=== PATIENT | male | born 1945 | race Caucasian/White ===

== ENCOUNTER → 2018-10-29 | Outpatient (CLI) | payer MEDICARE, BC ==
--- NOTE | 2018-10-29 14:26 | Diagnostic Imaging Report ---
INDICATION: COUGH. COMPARISON: None. FINDINGS: Frontal and lateral views of the chest demonstrate normal heart size and pulmonary vascularity. The lungs show minimal left basilar atelectasis, but are otherwise clear. There are no signs of infiltrate, pleural effusions or pneumothoraces. The visualized osseous structures show no acute abnormalities. Left-sided AICD is noted. IMPRESSION: 1. No acute process. No signs of infiltrates, effusions or pneumothoraces. Dictated by: Dictated on workstation # [id number]
== END ==
LOC: RAD FS 14:12
PROVIDERS: ATTEND Family Medicine
DX: R05 Cough (principal); Z95.810 Presence of automatic (implantable) cardiac defibrillator
CPT/HCPCS: 71046

== ENCOUNTER 2019-03-20 08:02 | Emergency (ER) | payer MEDICARE, BC ==
[~2019-03-20] VITALS: Ht 175.3 cm; Wt 99.8 kg
[2019-03-20] MEDS ORDERED: fentaNYL INJECTION 100 MCG/2 ML AMP IVP PRN (08:30)
[2019-03-20] MEDS ORDERED: meTOprolol 5 MG/5 ML (LOPRESSOR) VIAL IV ONE (08:30)
[2019-03-20] MEDS ORDERED: ONDANSETRON 4 MG/2 ML (SDV) Z0FRAN IVP ONE (08:30)
--- NOTE | 2019-03-20 08:35 | Diagnostic Imaging Report ---
INDICATION: Chest pain COMPARISON: 10/29/2018 FINDINGS: Single frontal view of the chest demonstrates stable heart size and pulmonary vascularity. The lungs are well aerated and clear. No large pleural effusion or pneumothorax is seen. The visualized osseous structures show no acute abnormalities. Left-sided AICD is noted. IMPRESSION: 1. No acute cardiopulmonary process. Dictated by: Dictated on workstation # [id number]
--- NOTE | 2019-03-20 08:44 | ED Chest Pain ---
General Chief Complaint: Chest Pain Stated Complaint: CHEST PAIN Source: patient, family Exam Limitations: no limitations History of Present Illness Date Seen by Provider: Mar 20, 2019 Time Seen by Provider: 08:15 Initial Comments Patient is a 73-year-old male with history of cardiac arrhythmia, CAD and COPD who presents with substernal chest pain radiating to the back of his neck. Patient reports some chest discomfort with palpitations intermittent since last evening. Chest substernal chest pain and then pain started approximately 90 minutes prior to ED arrival. Patient reports mild dyspnea. No nausea vomiting. No abdominal pain. Patient has been sizing twice in the past week at [facility] for arrhythmia and AICD discharge. 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 Patient is unsure the name of the medication. Additional history obtained from patient spouse. 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 Associated Symptoms: abdominal pain Allergies and Home Medications Allergies Coded Allergies: No Known Drug Allergies (Verified Allergy, Unknown, 11/24/08) Patient Home Medication List Home Medication List Reviewed: Yes Review of Systems Review of Systems Constitutional: see HPI EENTM: See HPI Respiratory: See HPI Cardiovascular: See HPI Gastrointestinal: See HPI Genitourinary: See HPI Musculoskeletal: see HPI Skin: see HPI Psychiatric/Neurological: See HPI Endocrine: See HPI Hematologic/Lymphatic: See HPI Past Vpwywmp-Gsjycm-Rwsbat Hx Past Med/Social Hx: Reviewed Nursing Past Med/Soc Hx Physical Exam Vital Signs Vital Signs - First Documented 03/20/19 03/20/19 08:12 08:53 Temp 96.8 Pulse 137 Resp 16 B/P (MAP) 103/79 (87) O2 Delivery Nasal Cannula O2 Flow Rate 3.0 Capillary Refill : Height, Weight, BMI Height: '" Weight: lbs. oz. 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 Norm as Tested Skin: Cool, Diaphoresis Progress/Results/Core Measures Results/Orders Lab Results Laboratory Tests Test 03/20/19 08:34 Range/Units White Blood Count 11.8 H 4.3-11.0 10^3/uL Red Blood Count 4.01 L 4.35-5.85 10^6/uL Hemoglobin 9.5 L 13.3-17.7 G/DL Hematocrit 31 L 40-54 % Mean Corpuscular Volume 78 L 80-99 FL Mean Corpuscular Hemoglobin 24 L 25-34 PG Mean Corpuscular Hemoglobin Concent 30 L 32-36 G/DL Red Cell Distribution Width 19.3 H 10.0-14.5 % Platelet Count 395 130-400 10^3/uL Mean Platelet Volume 9.4 7.4-10.4 FL Neutrophils (%) (Auto) 63 42-75 % Lymphocytes (%) (Auto) 22 12-44 % Monocytes (%) (Auto) 12 0-12 % Eosinophils (%) (Auto) 2 0-10 % Basophils (%) (Auto) 1 0-10 % Neutrophils # (Auto) 7.4 1.8-7.8 X 10^3 Lymphocytes # (Auto) 2.5 1.0-4.0 X 10^3 Monocytes # (Auto) 1.4 H 0.0-1.0 X 10^3 Eosinophils # (Auto) 0.2 0.0-0.3 10^3/uL Basophils # (Auto) 0.1 0.0-0.1 10^3/uL Sodium Level 136 135-145 MMOL/L Potassium Level 3.9 3.6-5.0 MMOL/L Chloride Level 92 L 98-107 MMOL/L Carbon Dioxide Level 28 21-32 MMOL/L Anion Gap 16 H 5-14 MMOL/L Blood Urea Nitrogen 18 7-18 MG/DL Creatinine 1.18 0.60-1.30 MG/DL Estimat Glomerular Filtration Rate > 60 BUN/Creatinine Ratio 15 Glucose Level 217 H 70-105 MG/DL Calcium Level 9.1 8.5-10.1 MG/DL Corrected Calcium 9.0 8.5-10.1 MG/DL Magnesium Level 1.8 1.8-2.4 MG/DL Total Bilirubin 0.3 0.1-1.0 MG/DL Aspartate Amino Transf (AST/SGOT) 19 5-34 U/L Alanine Aminotransferase (ALT/SGPT) 10 0-55 U/L Alkaline Phosphatase 83 40-136 U/L Troponin I < 0.30 <0.30 NG/ML Pro-B-Type Natriuretic Peptide 1353.0 H <75.0 PG/ML Total Protein 7.4 6.4-8.2 GM/DL Albumin 4.1 3.2-4.5 GM/DL My Orders Orders - JERALD HOOK DO Fentanyl Injection (Sublimaze Injection (03/20/19 08:30) Ondansetron Injection (Zofran Injectio (03/20/19 08:30) Cbc With Automated Diff (03/20/19 08:17) Comprehensive Metabolic Panel (03/20/19 08:17) Troponin I (03/20/19 08:17) Chest 1 View Ap/Pa Only (03/20/19 08:17) Probnp Fs (03/20/19 08:17) Magnesium (03/20/19 08:21) Metoprolol Tartrate Injection (Lopressor (03/20/19 08:30) Ns Iv 1000 Ml (Sodium Chloride 0.9%) (03/20/19 08:45) Enoxaparin Injection (Lovenox Injection) (03/20/19 09:00) Medications Given in ED Current Medications Medications Dose Ordered Sig/Mirna Route Start Time Stop Time Status Last Admin Dose Admin Enoxaparin Sodium 100 mg ONCE ONCE SC 03/20/19 09:00 03/20/19 09:01 DC 03/20/19 09:17 100 MG Fentanyl Citrate 50 mcg Q1H PRN IVP 03/20/19 08:30 03/20/19 08:30 50 MCG Metoprolol Tartrate 5 mg ONCE ONCE IV 03/20/19 08:30 03/20/19 08:31 DC 03/20/19 09:17 5 MG Ondansetron HCl 4 mg ONCE ONCE IVP 03/20/19 08:30 03/20/19 08:31 DC 03/20/19 08:30 4 MG Vital Signs/I&O 03/20/19 03/20/19 08:12 08:53 Temp 96.8 Pulse 137 Resp 16 B/P (MAP) 103/79 (87) O2 Delivery Nasal Cannula Nasal Cannula O2 Flow Rate 3.0 Departure Communication (Admissions) Ongoing chest pain with hypotension, bifasicularcular block versus slow V. tach with ischemic changes noted on EKG. IV fluids, fentanyl given, Lovenox. Aspirin received in the past [address] Torres excepts to [facility] ED. Amiodarone bolus and drip started prior to [facility]. Impression Primary Impression: Chest pain Additional Impressions: Hypotension Ventricular arrhythmia Disposition: XFER T-FORMERLY [facility], [facility] Condition: Improved Transfer Method of Transfer: Air Departure-Patient Inst. Decision time for Depature: 08:49 Referrals: JACQUES ZIMMER MD (PCP/Family) Primary Care Physician JERALD HOOK DO Mar 20, 2019 08:44
[2019-03-20 08:50] LABS: HEMOGLOBIN 9.5 G/DL (13.3-17.7); MEAN CORPUSCULAR HEMOGLOBIN 24 PG (25-34); WHITE BLOOD COUNT 11.8 10^3/uL (4.3-11.0)
[2019-03-20 08:51] LABS: BASOPHILS # (AUTO) 0.1 10^3/uL (0.0-0.1); BASOPHILS % (AUTO) 1 % (0-10); EOSINOPHILS # (AUTO) 0.2 10^3/uL (0.0-0.3); EOSINOPHILS % (AUTO) 2 % (0-10); HEMATOCRIT 31 % (40-54); LYMPHOCYTES # (AUTO) 2.5 X 10^3 (1.0-4.0); LYMPHOCYTES % (AUTO) 22 % (12-44); MEAN CORPUSCULAR HGB CONC 30 G/DL (32-36); MEAN CORPUSCULAR VOLUME 78 FL (80-99); MEAN PLATELET VOLUME 9.4 FL (7.4-10.4); MONOCYTES # (AUTO) 1.4 X 10^3 (0.0-1.0); MONOCYTES % (AUTO) 12 % (0-12); NEUTROPHILS # (AUTO) 7.4 X 10^3 (1.8-7.8); NEUTROPHILS % (AUTO) 63 % (42-75); PLATELET COUNT 395 10^3/uL (130-400); RED CELL DISTRIBUTION WIDTH 19.3 % (10.0-14.5)
[2019-03-20] MEDS ORDERED: ENOXAPARIN 100 MG/1 ML (LOVENOX) SYR SC ONE (09:00)
[2019-03-20 09:09] LABS: BUN/CREATININE RATIO 15; CALCIUM 9.1 MG/DL (8.5-10.1); CARBON DIOXIDE 28 MMOL/L (21-32); CHLORIDE 92 MMOL/L (98-107); CREATININE SERUM 1.18 MG/DL (0.60-1.30); GFR ESTIMATED > 60; GLUCOSE 217 MG/DL (70-105); POTASSIUM 3.9 MMOL/L (3.6-5.0); SODIUM 136 MMOL/L (135-145)
--- NOTE | 2019-03-20 09:09 | NUR ---
0840- [facility] CALLED AND WILL BE A 31 MIN ETA. 0851-[facility] CALLED WITH A 21 MON ETA.
[2019-03-20 09:10] LABS: ALANINE AMINOTRANSFERASE 10 U/L (0-55); ALBUMIN 4.1 GM/DL (3.2-4.5); ALKALINE PHOSPHATASE 83 U/L (40-136); BILIRUBIN,TOTAL 0.3 MG/DL (0.1-1.0); TOTAL PROTEIN 7.4 GM/DL (6.4-8.2)
[2019-03-20] MEDS: NS IV 1000 ML 1,000 ML IV SCH ×2 (09:17→09:22)
--- NOTE | 2019-03-20 09:23 | NUR ---
[facility] ARRIVED AT 0910.
[2019-03-20 09:28] LABS: MAGNESIUM 1.8 MG/DL (1.8-2.4)
[2019-03-20 09:33] VITALS: BP 74/46
--- NOTE | 2019-03-20 09:44 | NUR ---
0917: B/P 8746. Verified with Dr. Fernandez that IV lopressor should be given. Instructed by Dr. Fernandez to give 1 liter normal saline bolus wide open and give IV lopressor simultaneously.
[2019-03-20] MEDS ORDERED: NS IV 1000 ML 1,000 ML IV SCH (09:45)
--- OUTSIDE RECORDS SUMMARY | 2019-03-20 10:24 | XMS REPORT ---
Author Author JACQUES ZIMMER [facility] Address [address] [place] [address] Care Team Providers Care Grain Trimmer Name Role Phone JACQUES ZIMMER Unavailable PROBLEMS Type Condition ICD9-CM Code BAL10-ID Code Onset Dates Condition Status SNOMED Code Problem Diverticula of colon K57.30 Jan, Active 841537829 Problem Coronary atherosclerosis of unspecified type of vessel, [place] or graft I25.10 Active 828766514511981 Problem Chronic obstructive pulmonary disease with acute exacerbation J44.1 Aug, Active 606054108 Problem Type 2 diabetes mellitus E11.9 Oct, Active 91242453 Problem Anxiety state F41.1 Jan, Active 026377375 Problem Smoker F17.200 December, Active 41755290 Problem Constipation K59.00 December, Active 10096533 Problem Hyperlipidemia E78.5 December, Active 77453515 Problem Pain in joint, shoulder region M25.519 December, Active 149991933 Problem Osteoarthritis of left knee M17.12 Jun, Active 150206930 Problem Acute pancreatitis K85.90 December, Active 955499990 Problem Iron deficiency anemia secondary to inadequate dietary iron intake 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 Active 682942390 Problem Gastritis and duodenitis K29.90 Jan, Active 959478094 Problem Type 2 diabetes mellitus without complications E11.9 Active 324568989 Problem Basal cell carcinoma of face C44.310 May, Active 495779988 Problem Type 2 diabetes mellitus with other specified complication, unspecified whether long term care social worker insulin use E11.69 Active 51339793 Problem Panlobular emphysema J43.1 Active 7061300 Problem Type 2 diabetes mellitus without complication, without long-term current use of insulin E11.9 Active 821409394 Problem Hyperlipidemia, unspecified hyperlipidemia type E78.5 Active 76637650 ALLERGIES No Information ENCOUNTERS Encounter Location Date Diagnosis [facility] [address] [address] December, [facility] [place] [address] [address] December, [facility] [place] [address] [address] Nov, [facility] [place] [address] [address] Nov, Coronary atherosclerosis of unspecified type of vessel, [place] or graft I25.10 ; Iron deficiency anemia secondary to inadequate dietary iron intake D50.8 and Type 2 diabetes mellitus without complications E11.[address] [address] Nov, Iron deficiency anemia secondary to inadequate dietary iron intake D50.8 ; Type 2 diabetes mellitus without complications E11.9 and Coronary atherosclerosis of unspecified type of vessel, [place] or graft I25.[address] [address] Oct, [address] [address] Oct, Panlobular emphysema J43.1 ; Cough R05 ; Thrush B37.0 ; B12 deficiency E53.8 and Left lower lobe pulmonary infiltrate R91.8 [facility] [place] [address] [address] Sep, Panlobular emphysema J43.1 and HCAP (healthcare-associated pneumonia) J18.[address] [address] Sep, Hyperlipidemia, unspecified hyperlipidemia type E78.5 ; Type 2 diabetes mellitus without complication, without long-term current use of insulin E11.9 and Low hemoglobin D64.[address] [address] Sep, Hyperlipidemia, unspecified hyperlipidemia type E78.5 ; Type 2 diabetes mellitus without complication, without long-term current use of insulin E11.9 and Low hemoglobin D64.9 [facility] [place] [address] [address] Sep, [facility] [address] [place] [address] Sep, Cough R05 and Left lower lobe pulmonary infiltrate R91.8 [facility] [address] [place] [address] Sep, Chronic cough R05 [facility] [address] [place] [address] Sep, Chronic cough R05 [facility] [address] [place] [address] Aug, [facility] [address] [facility] [id number] [address] Jul, [facility] [address] [place] [address] Jul, [facility] [address] [id number] [address] Jul, [facility] [id number] [place] [address] Jul, [facility] [address] [place] [address] Jul, [facility] [address] [address] Jul, [facility] [address], [place] [address] Jul, [facility] [address] [place] [address] Jul, [facility] [id number] [address] Jun, [facility] [address], [place] [address] Jun, IMMUNIZATIONS No Known Immunizations SOCIAL HISTORY Never Assessed REASON FOR VISIT Test results PLAN OF CARE VITAL SIGNS MEDICATIONS Unknown Medications RESULTS No Results PROCEDURES No Known procedures INSTRUCTIONS MEDICATIONS ADMINISTERED No Known Medications MEDICAL (GENERAL) HISTORY Type Description Date Medical History Atrial fibrillation Medical History pacemaker Medical History COPD Surgical History pacemaker/defibrillator Hospitalization History surgical
--- OUTSIDE RECORDS SUMMARY | 2019-03-20 10:25 | XMS REPORT ---
Author Author JACQUES ZIMMER Organization [facility] Address [address] [place] [address] Care Team Providers Care Wireless Development Manager Name Role Phone JACQUES ZIMMER Unavailable PROBLEMS Type Condition ICD9-CM Code KMP54-ON Code Onset Dates Condition Status SNOMED Code Problem Diverticula of colon 562.10 Jan, 0 364655791 Problem Acute pancreatitis K85.90 December, 0 598133394 Problem Osteoarthritis of left knee M17.12 Jun, 0 335582894 Problem Chronic obstructive pulmonary disease with acute exacerbation 491.21 Aug, 0 823037981 Problem Gastritis and duodenitis 535.50 Jan, 0 774025132 Problem Gastritis and duodenitis K29.90 Jan, 0 268139833 Problem Basal cell carcinoma of face C44.310 May, 0 545080080 Problem Diverticula of colon K57.30 Jan, 0 909655405 Problem Coronary atherosclerosis of unspecified type of vessel, [place] or graft I25.10 0 240460371133250 Problem Rt arm pain 729.5 Aug, 0 90835619 Problem Rt shoulder pain 719.41 Sep, 0 092313843 Problem Smoker 305.1 December, 0 02345397 Problem Type 2 diabetes mellitus 250.00 Oct, 0 40529318 Problem Anxiety state 300.00 Jan, 0 983278526 Problem Constipation 564.00 December, 0 58326077 Problem Pain in joint, shoulder region 719.41 December, 0 851726845 Problem Hyperlipidemia 272.4 December, 0 32567707 Problem Coronary atherosclerosis of unspecified type of vessel, [place] or graft 414.00 0 881738584 Problem Acute pancreatitis 577.0 December, 0 695161888 Problem Type 2 diabetes mellitus E11.9 Oct, 0 94258374 Problem Chronic obstructive pulmonary disease with acute exacerbation J44.1 Aug, 0 821649303 Problem Smoker F17.200 December, 0 74588060 Problem Hyperlipidemia, unspecified hyperlipidemia type E78.5 Active 06264511 Problem Basal cell carcinoma of face 173.31 May, 0 497482930 Problem Type 2 diabetes mellitus without complication, without long-term current use of insulin E11.9 Active 890487575 Problem Pain in joint, shoulder region M25.519 December, 0 645426022 Problem Osteoarthritis of left knee 715.96 Jun, 0 690701489 Problem Anxiety state F41.1 Jan, 0 475131059 Problem Hyperlipidemia E78.5 December, 0 92251942 Problem Constipation K59.00 December, 0 68278026 Problem Panlobular emphysema J43.1 Active 8713480 ALLERGIES Substance Reaction Event Type Date Status Percocet hives Drug Allergy Oct, Active Amiodarone HCl hives Drug Allergy Oct, Active ENCOUNTERS Encounter Location Date Diagnosis [address] [address] December, [address] [address] Oct, [address] [address] Oct, Panlobular emphysema J43.1 ; Cough R05 ; Thrush B37.0 ; B12 deficiency E53.8 and Left lower lobe pulmonary infiltrate R91.[address] [address] Sep, Panlobular emphysema J43.1 and HCAP (healthcare-associated pneumonia) J18.[address] [address] Sep, Hyperlipidemia, unspecified hyperlipidemia type E78.5 ; Type 2 diabetes mellitus without complication, without long-term current use of insulin E11.9 and Low hemoglobin D64.[address] [address] Sep, Hyperlipidemia, unspecified hyperlipidemia type E78.5 ; Type 2 diabetes mellitus without complication, without long-term current use of insulin E11.9 and Low hemoglobin D64.9 [facility] [place] [facility] [address] [facility] [place] [address] 14 Sep, 2018 [facility] [address] [place] [address] 11 Sep, 2018 Cough R05 and Left lower lobe pulmonary infiltrate R91.8 [facility] [address] [place] [address] 05 Sep, 2018 Chronic cough R05 [facility] [address] [facility] [place] [address] Sep, Chronic cough R05 [facility] [address] [facility] [id number] [place] [address] Aug, [facility] [address] [facility] [id number] [place] [address] Jul, [facility] [id number] [place] [address] Jul, [facility] [id number] [address] Jul, [facility] [id number] [address] Jul, [facility] [id number] [address] Jul, [facility] [address], [place] [address] Jul, [facility] [address] [facility] [id number] [address] Jul, [facility] [id number], [place] [address] Jul, [facility] [id number], [place] [address] Jun, [facility] [address], [place] [address] Jun, IMMUNIZATIONS No Known Immunizations SOCIAL HISTORY Never Assessed REASON FOR VISIT Congestion PLAN OF CARE VITAL SIGNS Height 69 in 2018-10-29 Weight 218 lbs 2018-10-29 Temperature 97.7 degrees Fahrenheit 2018-10-29 Heart Rate 92 bpm 2018-10-29 Oximetry 94 % 2018-10-29 BMI 32.19 kg/m2 2018-10-29 Blood pressure systolic 131 mmHg 2018-10-29 Blood pressure diastolic 80 mmHg 2018-10-29 MEDICATIONS Medication Instructions Dosage Frequency Start Date End Date Duration Status Carvedilol 12.5 MG as directed Active Fish Oil 1000 MG Orally Once a day 1 capsule 24h 30 day(s) Active Tamsulosin HCl 0.4 MG TAKE 1 CAPSULE BY MOUTH ONCE DAILY AT BEDTIME 60 Active Aspirin 81 81 MG Orally Once a day 1 tablet 24h 30 day(s) Active Nystatin 076610 UNIT/ML Mouth/Throat Four times a day 4 ml 6h Oct, 7 days Active Furosemide 40 MG TAKE ONE TABLET BY MOUTH ONCE DAILY 27 Active Klor-Con 10 10 MEQ Orally Twice a day 1 tablet with food 12h 30 day(s) Active Venlafaxine HCl 75 MG Orally Once a day 1 tablet with food 24h 30 day(s) Active Alprazolam 0.5 MG Orally Twice a day 1 tablet 12h Active Ipratropium-Albuterol 0.5-2.5 (3) MG/3ML Inhalation every 6 hrs 3 ml 6h Sep, Active Anoro Ellipta 62.5-25 MCG/INH Inhalation Once a day 1 puff 24h Active Promethazine-Codeine 6.25-10 MG/5ML Orally every 6 hrs 5 ml as needed 6h 30 days Active Atorvastatin Calcium 20 MG TAKE 1 TABLET BY MOUTH LATE IN THE DAY 90 Active Sotalol HCl 120 MG Orally every 12 hrs 1 tablet 12h 30 day(s) Active HydrALAZINE HCl 25 MG Orally Three times a day 1 tablet with food 8h 30 day(s) Active RESULTS No Results PROCEDURES Procedure Date Ordered Result Body Site LAB NOT BILLED BY [facility] October 29, 2018 [facility] VISIT ESTABLISHED PATIENT October 29, 2018 INSTRUCTIONS MEDICATIONS ADMINISTERED No Known Medications MEDICAL (GENERAL) HISTORY Type Description Date Medical History Atrial fibrillation Medical History pacemaker Medical History COPD Surgical History pacemaker/defibrillator Hospitalization History surgical
--- OUTSIDE RECORDS SUMMARY | 2019-03-20 10:25 | XMS REPORT | Continuity of Care Document ---
Author Organization Unknown Address Unknown Allergies There is no data. Medications There is no data. Problems There is no data. Procedures There is no data. Results Test Result Range VITAMIN B12 - 10/29/18 14:30 VITAMIN B12 493 pg/mL 200-1100 CBC - 12/09/18 11:04 WHITE BLOOD CELL COUNT 9.2 Thousand/uL 3.8-10.8 RED BLOOD CELL COUNT 4.98 Million/uL 4.20-5.80 HEMOGLOBIN 11.4 g/dL 13.2-17.1 HEMATOCRIT 38.6 % 38.5-50.0 MCV 77.5 fL 80.0-100.0 MCH 22.9 pg 27.0-33.0 MCHC 29.5 g/dL 32.0-36.0 RDW 19.1 % 11.0-15.0 PLATELET COUNT 337 Thousand/uL 140-400 MPV 10.3 fL 7.5-12.5 ABSOLUTE NEUTROPHILS 5557 cells/uL 0415-1438 ABSOLUTE LYMPHOCYTES 2254 cells/uL 850-3900 ABSOLUTE MONOCYTES 984 cells/uL 200-950 ABSOLUTE EOSINOPHILS 304 cells/uL 15-500 ABSOLUTE BASOPHILS 101 cells/uL 0-200 NEUTROPHILS 60.4 % NRG LYMPHOCYTES 24.5 % NRG MONOCYTES 10.7 % NRG EOSINOPHILS 3.3 % NRG BASOPHILS 1.1 % NRG Encounters ACCT No. Visit Date/Time Discharge Status Pt. Type Provider Facility Loc./Unit Complaint [id number] 12/09/2018 10:45:00 12/09/2018 23:59:59 [facility] [id number] 12/09/2018 10:45:00 Document Registration [id number] 10/29/2018 13:30:00 Document Registration
== END 2019-03-20 09:33 | disposition short-term general hospital (02) ==
LOC: EDUNIT# 08:02 → ER FS 08:03
DX: I95.9 Hypotension, unspecified (principal); I49.8 Other specified cardiac arrhythmias; I25.10 Atherosclerotic heart disease of native coronary artery without angina pectoris; J44.9 Chronic obstructive pulmonary disease, unspecified; Z95.810 Presence of automatic (implantable) cardiac defibrillator
CPT/HCPCS: 36415; 71045; 80053; 83735; 83880; 84484; 85025; 93005; 96372; 96374; 96375